=== PATIENT | male | born 1950 | race Caucasian/White ===

== ENCOUNTER 2021-01-14 05:24 | Day surgery (SDC) | payer OTHER, MEDICARE, BC ==
--- NOTE | ~2021-01-14 | OR ---
[facility] [address] [facility] [place], [place] [address] Draft DATE OF OPERATION: 01/14/2021 SURGEON: Gifty Buenrostro MD PREOPERATIVE DIAGNOSIS: Displaced distal radius fracture, right. POSTOPERATIVE DIAGNOSIS: Displaced distal radius fracture, right. PROCEDURE PERFORMED: Closed reduction and percutaneous pinning, right distal radius. VULCANIZED FIBER UNIT OPERATOR: None. ANESTHESIA: General. BLOOD LOSS: Minimal. TOURNIQUET TIME: Zero. IMPLANTS: Four K-wires, three 1.6 and one 2.0. BRIEF HISTORY: Renato is a 70-year-old gentleman, who suffered a ground level fall late last week. Risks and benefits of operative treatment of this displaced fracture were discussed with him. He elected to proceed with pinning. DESCRIPTION OF PROCEDURE: Once consent was obtained, he was taken to the operating room. After adequate anesthesia, he was placed on operating room table, all downside pressure points were well padded. The wrist was prepped and draped in a standard sterile fashion. Closed reduction was relatively easily obtained, although I did use a 2.0 K-wire as a shoe horn to get the dorsal tilt better. We then passed two 1.6 K-wires from the radial styloid across the fracture engaging the body of the radius and two K-wires, one 1.6 and one 2.0 PATIENT NAME: RENATO SIMPSON OPERATIVE REPORT DATE OF : 50 REPORT #: [id number] PHYSICIAN: GIFTY BUENROSTRO MD PCP: GAGAN ARITA REPORT IS CONFIDENTIAL AND NOT TO BE RELEASED WITHOUT AUTHORIZATION [facility] [address] [place] [address] Draft dorsally from the dorsal rim of the radius across the fracture engaging the volar proximal radius. The fracture was quite stable and well reduced. Final radiographs were taken. The pins were then cut and bent and dressed with sterile gauze and sterile cast padding. He was placed in a radial gutter splint. He tolerated this well. He was taken to the recovery room in satisfactory condition. All sponge, needle, and instrument counts were correct. Gifty Buenrostro MD BA/MODL /[id number] Copies: ~ PATIENT NAME: RENATO SIMPSON OPERATIVE REPORT DATE OF : 50 REPORT #: [id number] PHYSICIAN: GIFTY BUENROSTRO MD PCP: GAGAN ARITA REPORT IS CONFIDENTIAL AND NOT TO BE RELEASED WITHOUT AUTHORIZATION
[~2021-01-14 05:24] MED LIST: BENADRYL25 MG PO; COENZYME Q10100 M1 PO; COMPETE1 EACH PO; COZAAR50 MG PO; FAMOTIDINE20 MG PO; FERROUS SULFAT325 MG PO; FINASTERIDE5 MG PO; GABAPENTIN600 MG PO; HYDROMORPHONE HC4 MG PO; HYZAAR 100-12.1 EACH PO; HYZAAR 100-251 EACH PO; KETOCONAZOLE15 GM TP; LIDOCAINE700 MG TOP; LOSARTAN POTAS100 MG PO; LYRICA100 MG PO; METHOCARBAMOL750 MG PO; MIRALAX17 GM PO; NORCO 10-325 T1 EACH PO; NORCO 7.5-3251 EACH PO; OXYCODONE HCL5 MG PO; SIMVASTATIN20 MG PO; SKELAXIN800 MG PO; SYMBICORT 16010.2 GM IH; SYMBICORT 16010.2 GM INH; TUMS200 MG PO; VENLAFAXINE H37.5 MG PO; VITAMIN C500 M1 PO
--- NOTE | 2021-01-14 06:51 | NUR ---
PT STATES HAVING NO SALIVARY GLAND AND WOULD LIKE TO RINSE MOUTH WITH WATER AND SPIT. PT PROVIDED GLYCERIN SWABS TO HELP KEEP MOUTH MOIST. SPOUSE AT BEDSIDE, CALL LIGHT WITHIN REACH. PT AWARE OF DELAYED START THIS MORNING.
[2021-01-14] MEDS ORDERED: OXYCODONE HCL5 MG PO (07:10)
[2021-01-14] MEDS ORDERED: TYLENOL325 MG PO (07:10)
[2021-01-14] MEDS ORDERED: ULTRAM50 MG PO (07:13)
[2021-01-14] MEDS ORDERED: DULOXETINE HCL20 MG PO (07:13)
[2021-01-14] MEDS ORDERED: HYDROCHLOROTH12.5 MG PO (07:17)
--- NOTE | 2021-01-14 08:10 | NUR ---
PT USES CALL LIGHT AND REQUESTS URINAL. PT VOIDS APPROX 300 MLS DARK YELLOW URINE. SPOUSE COLD WITH WARM BLANKETS AROUND SHOULDERS, JOHNNY HUGGER IN PLACE.
--- NOTE | 2021-01-14 10:36 | NUR ---
01/14/21 1036 Yessica Gallardo 0375 PT ARRIVED IN PACU NON RESPONSIVE TO NOXIOUS STIMULI WITH OPA IN PLACE. R HAND ELEVATED ON PILLOW. OXYGEN SATS 92% ON RA ON ARRIVAL. O2 AT 6L VIA MASK PLACED PER ANESTHESIA REQUEST. SATS 96% ON 6L. 1009 PT REACTIVE. OPA REMOVED. ICE PLACED TO R HAND. 1011 C/O R HAND PAIN 7/10. FENTANYL 50MCG GIVEN IVP. 1015 O2 AT 2L VIA NC PLACED WITH SATS 94%. 1019 PAIN INCREASED TO 9/10 IN R HAND. FENTANLYL 50MCG GIVEN IVP. 1030 PAIN DOWN TO 5/10. FENTANYL 50MCG GIVEN IVP. PT VISITING WITH STAFF.
--- NOTE | 2021-01-14 10:50 | NUR ---
PUDDING AND ICED WATER GIVEN. CALL LIGHT WITHIN REACH. SPOUSE AT BEDSIDE. HOB ELEVATED AND PATIENT IS EATING AND DRINKING AND TOLERATING THAT WELL.
--- NOTE | 2021-01-14 12:17 | NUR ---
LE 1145: PATIENT IS ASSISTED TO THE SIDE OF THE BED AND HE DENIES DIZZINESS. PATIENT AND SPOUSE ARE GIVEN DISCHARGE INSTRUCTIONS AND BOTH VERBALIZE UNDERSTANDING. PATIENT IS GETTING DRESSED WITH THE ASSISTANCE OF HIS SPOUSE. HE TRANSFERS TO THE WHEELCHAIR AND TO PERSONAL VEHICLE WITH MY ASSIST AND HE TOLERATES THAT WELL.
== END 2021-01-14 11:55 | disposition home or self-care (01) ==
LOC: DS 05:24
PROVIDERS: ATTEND Specialist
PROC: 0PSH34Z Reposition Right Radius with Internal Fixation Device, Percutaneous Approach (ICD-10-PCS; principal; 2021-01-14 06:45)
DX: S52.571A Other intraarticular fracture of lower end of right radius, initial encounter for closed fracture (principal); Z88.0 Allergy status to penicillin; Z88.1 Allergy status to other antibiotic agents; Z88.8 Allergy status to other drugs, medicaments and biological substances; Z87.891 Personal history of nicotine dependence; W01.0XXA Fall on same level from slipping, tripping and stumbling without subsequent striking against object, initial encounter
CPT/HCPCS: 73100; J0690; J1100; J1885; J2001; J2405; J2704; J3010; J7121

== ENCOUNTER 2021-02-23 09:04 | Day surgery (SDC) | payer MEDICARE, BC ==
[~2021-02-23] VITALS: Ht 180.3 cm; Wt 123.0 kg
[~2021-02-23 09:04] MED LIST changes: +DULOXETINE HCL20 MG PO; +GEN TOP; +HYDROCHLOROTH12.5 MG PO; -LIDOCAINE700 MG TOP; +TYLENOL325 MG PO; +ULTRAM50 MG PO
--- NOTE | 2021-02-23 10:30 | NUR ---
PROVIDED PATIENT WITH UPDATE ON PLAN OF CARE. PROVIDED WARM BLANKETS AND DIMMED LIGHTS. NO OTHER NEEDS AT THIS TIME.
--- NOTE | 2021-02-23 11:30 | NUR ---
PATIENT LAYING IN POSITION IN THE BED, APPEARS TO BE RESTING WITH EYES CLOSED. REPORTS NO NEEDS AT THIS TIME.
--- NOTE | 2021-02-23 14:08 | NUR ---
02/23/21 1408 Yessica Gallardo 1332 PT ARRIVED IN PACU SLEEPY WITH NO C/O'S. R WRIST ELEVATED ON PILLOWS. 1345 C/O PAIN IN R WRIST 10. DECLINED PAIN MED WHEN OFFERED. 1400 SITTING AT SIDE OF BED SIPPING ON WATER. 1405 AT BEDSIDE HELPING PT GET DRESSED. DC INSTRUCTIONS GIVEN. ALL QUESTIONS ANSWERED.
--- NOTE | 2021-02-25 07:11 | OR ---
[facility] [address] [place], [place] [address] Signed DATE OF OPERATION: 02/23/2021 SURGEON: Gifty Buenrostro MD PREOPERATIVE DIAGNOSIS: Retained K-wires, right wrist. POSTOPERATIVE DIAGNOSIS: Retained K-wires, right wrist. PROCEDURE PERFORMED: Removal of K-wires, right wrist. MEDIA PRODUCER: None. ANESTHESIA: MAC. BRIEF HISTORY: Renato is a 71-year-old gentleman who suffered a ground level fall after his hip replacement and had a fractured wrist. He underwent closed reduction and percutaneous pinning without significant problems. During the course of his recovery, one of the pins was overgrown removed in clinic. Risks and benefits of removal here were discussed with him. He elected to proceed. DESCRIPTION OF PROCEDURE: Once consent was obtained, he was taken to the operating room. After adequate anesthesia, he was left on the day surgery cart. He was given light MAC with anesthesia and the arm was prepped and draped. The dorsal pin was then pushed back through the skin and removed using a needle clamp truck driver. The other two pins were removed similarly. All wounds were then treated with Dermabond and Xeroform with sterile gauze. He was placed in a cock-up wrist splint. He tolerated the procedure well. All sponge, needle, and instrument counts were correct. Gifty Buenrostro MD Electronically Signed By: GIFTY BUENROSTRO MD 02/25/21 0711 PATIENT NAME: RENATO SIMPSON OPERATIVE REPORT DATE OF : 50 REPORT #: [id number] PHYSICIAN: GIFTY BUENROSTRO MD PCP: GAGAN ARITA REPORT IS CONFIDENTIAL AND NOT TO BE RELEASED WITHOUT AUTHORIZATION [address] [place], [place] [address] Signed /MODL /[id number] Copies: ~ Electronically Signed By: GIFTY BUENROSTRO MD 02/25/21 0711 PATIENT NAME: RENATO SIMPSON OPERATIVE REPORT DATE OF : 50 REPORT #: [id number] PHYSICIAN: GIFTY BUENROSTRO MD PCP: GAGAN ARITA REPORT IS CONFIDENTIAL AND NOT TO BE RELEASED WITHOUT AUTHORIZATION
== END 2021-02-23 14:10 | disposition home or self-care (01) ==
LOC: DS 09:04
PROVIDERS: ATTEND Specialist
PROC: 0PPH04Z Removal of Internal Fixation Device from Right Radius, Open Approach (ICD-10-PCS; principal; 2021-02-23 13:30)
DX: Z47.2 Encounter for removal of internal fixation device (principal); S52.501D Unspecified fracture of the lower end of right radius, subsequent encounter for closed fracture with routine healing; W18.30XD Fall on same level, unspecified, subsequent encounter
CPT/HCPCS: 01820; J0690; J1100; J2001; J2250; J2704; J2795; J7121

== ENCOUNTER 2021-03-10 10:40 | Day surgery (SDC) | payer MEDICARE, BC ==
[~2021-03-10] VITALS: Ht 180.3 cm; Wt 131.8 kg
[2021-03-10] MEDS ORDERED: DULOXETINE HCL30 MG PO (11:18)
--- NOTE | 2021-03-10 12:40 | NUR ---
1240: THIS RN MISSED LAB DRAW PRIOR TO INFUSION. TC PLACED TO FRANKLIN, DO AND DO AWARE. NEW ORDER RECEIVED TO DRAW BMP AFTER COMPLETION OF INFUSION. PT OKAY TO D/C PRIOR TO RESULTED LAB
--- NOTE | 2021-03-10 13:43 | NUR ---
03/10/21 1343 Sheets,Leigha 1334 PT ARRIVED TO PACU ON 4L VIA OXYMASK, VSS. PT WAKES EASILY AND SNORING NOTED. 1340 PT DENEIS PAIN AND NAUSEA. HOB INCREASED SLIGHTLY AND O2 REMOVED. RN ENCOURAGES DEEP BREATHING OFF AND ON.
--- NOTE | 2021-03-10 21:09 | OR ---
[facility] [address] [place], [place] [address] Signed DATE OF OPERATION: 03/10/2021 SURGEON: Gagan Nixon MD PREOPERATIVE DIAGNOSES: 1. 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 2. Diarrhea. 3. History of cholecystectomy. POSTOPERATIVE DIAGNOSIS: Normal colonoscopy to cecum. ANESTHESIA: Intravenous sedation, propofol infusion; Heather Btaes CRNA INDICATIONS: This 71-year-old white man is now a patient of PEYTON Ortiz. He has numerous comorbidities including obesity, hypertension and episodic diarrhea. He also has sleep apnea syndrome. He has undergone cholecystectomy in the past. He is admitted at this time to undergo surveillance colonoscopy, understand the risk of bleeding, infection, and perforation. Given his numerous comorbidities, IV sedation per anesthesia support as needed. He has had joint replacement therapy and preoperative antibiotics were given as well. FINDINGS: The prep was good. Complete colonoscopy was undertaken to the cecum, now the colon seemed somewhat redundant and did not distend necessarily well throughout. There was no evidence of inflammatory disease, polyps, cancer, or other issue. There was no stricture. I suspect his diarrhea is post cholecystectomy related. DESCRIPTION OF PROCEDURE: The patient was brought to the endoscopy suite and placed in lateral decubitus position, given intravenous sedation with full cardiopulmonary monitoring by the automatic drilling machine operator. A digital rectal examination was normal. An Olympus video colonoscope was passed in the rectum and manipulated throughout the colon. Ultimately, the cecum was intubated. The ileocecal valve was normal. Scope was withdrawn from that point and examination throughout showed no sign of polyps, diverticular formation, colitis, or cancer. Retroflex view was normal as well. The scope was removed and the patient was taken to the recovery room in good condition. Electronically Signed By: GAGAN NIXON MD 03/10/21 2109 PATIENT NAME: ELROY SIMPSON OPERATIVE REPORT DATE OF : 50 REPORT #: [id number] PHYSICIAN: GAGAN NIXON MD PCP: GAGAN ARITA REPORT IS CONFIDENTIAL AND NOT TO BE RELEASED WITHOUT AUTHORIZATION [facility] [address] [place], [place] [address] Signed CONCLUDING DIAGNOSIS: Diarrhea, probably related to post cholecystectomy etiology. PLAN: We will recommend Questran 4 g p.o. 1 to 4 times a day for symptoms control. If this is ineffective, he will let me know. He will return to the ongoing care of Gagan TODD, otherwise. MD SONA Ashton/EVELIOL /[id number] cc: PEYTON Ortiz Copies: GAGAN ARITA ~ Electronically Signed By: GAGAN NIXON MD 03/10/21 2109 PATIENT NAME: ELROY SIMPSON OPERATIVE REPORT DATE OF : 50 REPORT #: [id number] PHYSICIAN: GAGAN NIXON MD PCP: GAGAN ARITA REPORT IS CONFIDENTIAL AND NOT TO BE RELEASED WITHOUT AUTHORIZATION
== END 2021-03-10 14:34 | disposition home or self-care (01) ==
LOC: DS 10:40 → OPS 10:40
PROVIDERS: ATTEND Surgery
PROC: 0DJD8ZZ Inspection of Lower Intestinal Tract, Via Natural or Artificial Opening Endoscopic (ICD-10-PCS; principal; 2021-03-10 12:00)
DX: R19.7 Diarrhea, unspecified (principal); I10 Essential (primary) hypertension; G47.33 Obstructive sleep apnea (adult) (pediatric); N40.0 Benign prostatic hyperplasia without lower urinary tract symptoms; E66.01 Morbid (severe) obesity due to excess calories; L72.3 Sebaceous cyst; Z85.038 Personal history of other malignant neoplasm of large intestine; Z88.1 Allergy status to other antibiotic agents; Z88.5 Allergy status to narcotic agent; Z88.0 Allergy status to penicillin; Z88.8 Allergy status to other drugs, medicaments and biological substances; Z86.010 Personal history of colon polyps; Z87.891 Personal history of nicotine dependence; Z96.642 Presence of left artificial hip joint; Z96.611 Presence of right artificial shoulder joint; Z96.651 Presence of right artificial knee joint; Z98.1 Arthrodesis status; Z68.38 Body mass index [BMI] 38.0-38.9, adult; Z90.49 Acquired absence of other specified parts of digestive tract
CPT/HCPCS: J2001; J2704; J7121